=== PATIENT | female | born 1950 | race Caucasian/White ===

== ENCOUNTER 2016-11-25 19:32 | Inpatient (IN) | payer MEDICARE, OTHER ==
[~2016-11-25] VITALS: Ht 152.4 cm; Wt 137.0 kg
[2016-11-25] MEDS ORDERED: DUONEB INH ONE ×2 (21:50)
[2016-11-25] MEDS ORDERED: METHYLPRED SOD SUCC 125 MG/2 ML VIAL ONE (22:02)
[2016-11-26] VITALS (8 sets, daily range): BP systolic 90–122; RESP 18–20; TEMP 98–98.4; BMI 59.1
[2016-11-26] MEDS ORDERED: NEB-ATROVENT INH PRN (04:10)
[2016-11-26] MEDS ORDERED: SALINE FLUSH 10 ML FLUSH PRN (04:10)
[2016-11-26] MEDS ORDERED: AZITHROMYCIN 250 MG TAB PO ONE (04:10)
[2016-11-26] MEDS ORDERED: ONDANSETRON 4 MG VIAL IV PRN (04:10)
[2016-11-26] MEDS ORDERED: NEB-ALBUTEROL 2.5 MG/3 ML INH PRN (04:10)
[2016-11-26] MEDS: SODIUM CHLORIDE 0.9% FLUSH BAG 500 ML IV SCH (06:00)
[2016-11-26] MEDS ORDERED: METHYLPRED SOD SUCC 125 MG/2 ML VIAL IV SCH (08:00)
[2016-11-26] MEDS: SALINE FLUSH 10 ML FLUSH SCH ×2 (09:19→21:03)
[2016-11-26] MEDS ORDERED: DEXTROSE 50% SYRINGE 50 ML IV PRN (09:30)
[2016-11-26] MEDS ORDERED: GLUCAGON 1 MG VIAL IM PRN (09:30)
[2016-11-26] MEDS: MONTELUKAST 10 MG TAB PO SCH (11:13)
[2016-11-26] MEDS: DUONEB INH SCH ×4 (11:47→22:00)
[2016-11-26] MEDS ORDERED: CEFTRIAXONE 1 GM in SODIUM CHLORIDE 0.9% 50 ML IV ONE (12:15)
[2016-11-26] MEDS: METHYLPRED SOD SUCC 125 MG/2 ML VIAL IV SCH ×2 (15:36→23:42)
[2016-11-26] MEDS: WARFARIN 4 MG TAB PO SCH (15:37)
[2016-11-26] MEDS ORDERED: SODIUM CHLORIDE 0.9% 500 ML IV ONE (15:50)
[2016-11-26] MEDS ORDERED: METHYLPRED SOD SUCC 40 MG VIAL IV SCH (16:00)
[2016-11-26] MEDS: NEB-BUDESONIDE 0.5 MG INH SCH (19:10)
[2016-11-26] MEDS: NEB-BROVANA 15 MCG/2 ML INH SCH (19:10)
[2016-11-26] MEDS: Atorvastatin 20 MG TAB PO SCH (20:56)
[2016-11-26] MEDS: LEVEMIR INSULIN SUBQ SCH (20:57)
[2016-11-26] MEDS: METOPROLOL TART 25 MG TAB PO SCH (21:00)
[2016-11-27] VITALS (7 sets, daily range): BP systolic 92–142; RESP 16–20; TEMP 97.7–98.9
[2016-11-27] MEDS: SODIUM CHLORIDE 0.9% FLUSH BAG 500 ML IV SCH (04:35)
[2016-11-27] MEDS: LEVOTHYROXINE 0.15 MG TAB PO SCH (06:40)
[2016-11-27] MEDS: NEB-BUDESONIDE 0.5 MG INH SCH ×2 (06:56→18:37)
[2016-11-27] MEDS: DUONEB INH SCH ×5 (06:56→22:11)
[2016-11-27] MEDS: NEB-BROVANA 15 MCG/2 ML INH SCH ×2 (06:56→18:37)
[2016-11-27] MEDS: AZITHROMYCIN 250 MG TAB PO SCH (09:54)
[2016-11-27] MEDS: CETIRIZINE 10 MG TAB PO SCH (09:54)
[2016-11-27] MEDS: METOPROLOL TART 25 MG TAB PO SCH ×2 (09:54→20:44)
[2016-11-27] MEDS: SALINE FLUSH 10 ML FLUSH SCH ×2 (09:54→20:40)
[2016-11-27] MEDS ORDERED: SODIUM CHLORIDE 0.9% 500 ML IV ONE (09:55)
[2016-11-27] MEDS: MONTELUKAST 10 MG TAB PO SCH (09:55)
[2016-11-27] MEDS: METHYLPRED SOD SUCC 125 MG/2 ML VIAL IV SCH (09:55)
[2016-11-27] MEDS ORDERED: MISSING DOSE XX ONE (10:05)
[2016-11-27] MEDS: CEFTRIAXONE 1 GM in SODIUM CHLORIDE 0.9% 50 ML IV SCH (10:57)
[2016-11-27] MEDS: METHYLPRED SOD SUCC 40 MG VIAL IV SCH (17:52)
[2016-11-27] MEDS: WARFARIN 4 MG TAB PO SCH (17:52)
[2016-11-27] MEDS: Atorvastatin 20 MG TAB PO SCH (20:40)
[2016-11-27] MEDS: LEVEMIR INSULIN SUBQ SCH (20:41)
[2016-11-28] MEDS: METHYLPRED SOD SUCC 40 MG VIAL IV SCH ×3 (00:22→17:20)
[2016-11-28] MEDS: LEVOTHYROXINE 0.15 MG TAB PO SCH (06:39)
[2016-11-28] MEDS: SODIUM CHLORIDE 0.9% FLUSH BAG 500 ML IV SCH (06:40)
[2016-11-28] MEDS: NEB-BUDESONIDE 0.5 MG INH SCH ×2 (07:29→19:33)
[2016-11-28] MEDS: DUONEB INH SCH ×5 (07:29→22:19)
[2016-11-28] MEDS: NEB-BROVANA 15 MCG/2 ML INH SCH ×2 (07:29→19:33)
[2016-11-28 07:30] VITALS: BP_SYST 100; RESP 22; TEMP 97.8
[2016-11-28] MEDS: SALINE FLUSH 10 ML FLUSH SCH ×2 (08:22→20:25)
[2016-11-28] MEDS: CEFTRIAXONE 1 GM in SODIUM CHLORIDE 0.9% 50 ML IV SCH (08:51)
[2016-11-28] MEDS: CETIRIZINE 10 MG TAB PO SCH (08:51)
[2016-11-28] MEDS: AZITHROMYCIN 250 MG TAB PO SCH (08:51)
[2016-11-28] MEDS: MONTELUKAST 10 MG TAB PO SCH (08:51)
[2016-11-28] MEDS: CYANOCOBALAMIN 1000 MCG/ML VIAL IM SCH (08:55)
[2016-11-28] MEDS: METOPROLOL TART 25 MG TAB PO SCH ×2 (09:00→20:24)
[2016-11-28] MEDS: SOD CHL NASAL SPR 45ML NARE EACH PRN (09:46)
[2016-11-28 11:20] VITALS: BP_SYST 102; RESP 20; TEMP 98
[2016-11-28] MEDS: NEB-NACL 3% 4 ML NEBU INH SCH ×3 (12:30→22:19)
[2016-11-28 15:18] VITALS: BP_SYST 114; RESP 28; TEMP 98.3
[2016-11-28] MEDS: SALINE NARE EACH SCH ×3 (17:36→21:00)
[2016-11-28 19:37] VITALS: BP_SYST 110; RESP 20; TEMP 97.5
[2016-11-28] MEDS: Atorvastatin 20 MG TAB PO SCH (20:23)
[2016-11-28] MEDS: LEVEMIR INSULIN SUBQ SCH (20:24)
[2016-11-28 23:35] VITALS: BP_SYST 84; BP_SYST 88; RESP 30; TEMP 98
[2016-11-29] VITALS (8 sets, daily range): BP systolic 97–126; RESP 20–30; TEMP 97.5–98.2; Ht 152.4 cm; Wt 137.0 kg
[2016-11-29] MEDS: METHYLPRED SOD SUCC 40 MG VIAL IV SCH ×2 (00:29→08:36)
[2016-11-29] MEDS: LEVOTHYROXINE 0.15 MG TAB PO SCH (06:18)
[2016-11-29] MEDS: SODIUM CHLORIDE 0.9% FLUSH BAG 500 ML IV SCH (06:18)
[2016-11-29] MEDS: NEB-BUDESONIDE 0.5 MG INH SCH ×2 (07:24→19:12)
[2016-11-29] MEDS: NEB-BROVANA 15 MCG/2 ML INH SCH ×2 (07:24→19:12)
[2016-11-29] MEDS: DUONEB INH SCH ×5 (07:24→22:57)
[2016-11-29] MEDS: NEB-NACL 3% 4 ML NEBU INH SCH ×5 (07:24→22:57)
[2016-11-29] MEDS: SALINE FLUSH 10 ML FLUSH SCH ×2 (08:36→20:18)
[2016-11-29] MEDS: CYANOCOBALAMIN 1000 MCG/ML VIAL IM SCH (08:38)
[2016-11-29] MEDS: CEFTRIAXONE 1 GM in SODIUM CHLORIDE 0.9% 50 ML IV SCH (08:38)
[2016-11-29] MEDS: SOD CHL NASAL SPR 45ML NARE EACH PRN ×2 (08:39→17:35)
[2016-11-29] MEDS: METOPROLOL TART 25 MG TAB PO SCH ×2 (08:39→20:18)
[2016-11-29] MEDS: AZITHROMYCIN 250 MG TAB PO SCH (08:39)
[2016-11-29] MEDS: CETIRIZINE 10 MG TAB PO SCH (08:39)
[2016-11-29] MEDS: MONTELUKAST 10 MG TAB PO SCH (08:39)
[2016-11-29] MEDS: SALINE NARE EACH SCH ×3 (08:41→20:18)
[2016-11-29] MEDS ORDERED: ONDANSETRON 4 MG TAB PO PRN (12:25)
[2016-11-29] MEDS ORDERED: ONDANSETRON 4 MG VIAL IV PUSH PRN (12:40)
[2016-11-29] MEDS: Atorvastatin 20 MG TAB PO SCH (20:18)
[2016-11-29] MEDS ORDERED: LEVEMIR INSULIN SUBQ SCH (21:00)
[2016-11-30] MEDS: SODIUM CHLORIDE 0.9% FLUSH BAG 500 ML IV SCH (02:41)
[2016-11-30 02:44] VITALS: BP_SYST 111; RESP 20; TEMP 98.3
[2016-11-30] MEDS: LEVOTHYROXINE 0.15 MG TAB PO SCH (05:06)
[2016-11-30] MEDS: NEB-BUDESONIDE 0.5 MG INH SCH (06:35)
[2016-11-30] MEDS: NEB-BROVANA 15 MCG/2 ML INH SCH (06:35)
[2016-11-30] MEDS: NEB-NACL 3% 4 ML NEBU INH SCH ×2 (06:35→10:20)
[2016-11-30] MEDS: DUONEB INH SCH ×2 (06:35→10:20)
[2016-11-30 07:53] VITALS: BP_SYST 127; RESP 20; TEMP 98.2
[2016-11-30] MEDS: CEFTRIAXONE 1 GM in SODIUM CHLORIDE 0.9% 50 ML IV SCH (08:57)
[2016-11-30] MEDS: SALINE FLUSH 10 ML FLUSH SCH (08:57)
[2016-11-30] MEDS: CYANOCOBALAMIN 1000 MCG/ML VIAL IM SCH (08:57)
[2016-11-30] MEDS: CETIRIZINE 10 MG TAB PO SCH (08:57)
[2016-11-30] MEDS: METOPROLOL TART 25 MG TAB PO SCH (08:58)
[2016-11-30] MEDS: SALINE NARE EACH SCH (08:58)
[2016-11-30] MEDS: MONTELUKAST 10 MG TAB PO SCH (08:58)
[2016-11-30] MEDS: AZITHROMYCIN 250 MG TAB PO SCH (08:58)
[2016-11-30] MEDS ORDERED: PREDNISONE 10 MG TAB PO SCH (09:00)
[2016-11-30 10:32] VITALS: BP_SYST 111; RESP 20; TEMP 98
[2016-11-30 12:20] VITALS: BP_SYST 111; RESP 20; TEMP 98
== END 2016-11-30 12:55 | DRG 189 ==
LOC: ENRESERVTM → ENRESERVDT → CANRESERV → ER 19:32 → EMR 11-26 00:50 → ENPENDDIS 11-26 00:50 → 4NT 11-26 03:07
PROVIDERS: ADMIT Family Medicine; ATTEND Family Medicine
DX: J96.01 Acute respiratory failure with hypoxia (principal); J18.9 Pneumonia, unspecified organism; J45.901 Unspecified asthma with (acute) exacerbation; Z68.43 Body mass index [BMI] 50.0-59.9, adult; E03.9 Hypothyroidism, unspecified; G47.33 Obstructive sleep apnea (adult) (pediatric); E66.01 Morbid (severe) obesity due to excess calories; J20.9 Acute bronchitis, unspecified; E11.22 Type 2 diabetes mellitus with diabetic chronic kidney disease; I12.9 Hypertensive chronic kidney disease with stage 1 through stage 4 chronic kidney disease, or unspecified chronic kidney disease; N18.3 Chronic kidney disease, stage 3 (moderate); Z79.84 Long term (current) use of oral hypoglycemic drugs; I48.91 Unspecified atrial fibrillation; Z79.01 Long term (current) use of anticoagulants; E53.8 Deficiency of other specified B group vitamins; M62.3 Immobility syndrome (paraplegic); M19.90 Unspecified osteoarthritis, unspecified site; E78.5 Hyperlipidemia, unspecified; Z86.711 Personal history of pulmonary embolism; R04.0 Epistaxis
CPT/HCPCS: 36415; 71010; 71020; 80048; 80053; 81001; 81003; 82553; 82570; 82607; 82746; 82947; 83036; 83880; 84156; 84484; 85025; 85610; 85730; 87804; 93005; 93306; 94640; 94799; 96374; 99222; 99233; 99239

== ENCOUNTER 2016-11-29 09:07 | Inpatient (IN) | payer MEDICARE, OTHER ==
[~2016-11-29] VITALS: Ht 152.4 cm; Wt 134.4 kg
[2016-11-30] MEDS ORDERED: GLUCAGON 1 MG VIAL IM PRN (07:40)
[2016-11-30] MEDS ORDERED: ONDANSETRON 4 MG TAB PO PRN (07:40)
[2016-11-30] MEDS ORDERED: PNEUMO VAC 25 MCG/0.5 ML VL IM.VACC ONE (07:40)
[2016-11-30] MEDS ORDERED: DUONEB INH PRN (07:40)
[2016-11-30] MEDS ORDERED: POLYETHYLENE GLYCOL 17 GM PACKET PO PRN (07:40)
[2016-11-30] MEDS ORDERED: DEXTROSE 50% SYRINGE 50 ML IV PRN (07:40)
[2016-11-30] MEDS ORDERED: SALINE NARE EACH PRN (07:40)
[2016-11-30] MEDS ORDERED: SOD CHL NASAL SPR 45ML NARE EACH PRN (07:40)
[2016-11-30] MEDS ORDERED: MAG HYDROX 30 ML UDC PO PRN (07:40)
[2016-11-30] MEDS: MONTELUKAST 10 MG TAB PO SCH (09:00)
[2016-11-30] MEDS ORDERED: AZITHROMYCIN 250 MG TAB PO SCH (09:00)
[2016-11-30] MEDS: METOPROLOL TART 25 MG TAB PO SCH ×2 (09:00→20:28)
[2016-11-30] MEDS: CYANOCOBALAMIN 1000 MCG/ML VIAL IM SCH (09:00)
[2016-11-30] MEDS: PRENATAL VITAMIN TAB PO SCH (09:00)
[2016-11-30] MEDS: PREDNISONE 10 MG TAB PO SCH (09:00)
[2016-11-30] MEDS: CEFDINIR 300 MG CAP PO SCH ×2 (09:00→20:28)
[2016-11-30] MEDS: CETIRIZINE 10 MG TAB PO SCH (09:00)
[2016-11-30 13:32] VITALS: BP_SYST 99; RESP 20; TEMP 97.6
[2016-11-30 13:33] VITALS: BP_SYST 100; RESP 20
[2016-11-30] MEDS: LEVOTHYROXINE 0.15 MG TAB PO SCH (13:35)
[2016-11-30] MEDS: DUONEB INH SCH ×2 (14:57→22:44)
[2016-11-30 14:59] VITALS: RESP 18
[2016-11-30 16:37] VITALS: BP_SYST 114; RESP 20; TEMP 98.1
[2016-11-30] MEDS: NEB-BROVANA 15 MCG/2 ML INH SCH (17:53)
[2016-11-30] MEDS: NEB-BUDESONIDE 0.5 MG INH SCH (17:54)
[2016-11-30] MEDS: Atorvastatin 20 MG TAB PO SCH (20:28)
[2016-11-30] MEDS ORDERED: LEVEMIR INSULIN SUBQ SCH (21:00)
[2016-11-30] MEDS ORDERED: TUBERCULIN PPD 5 UNIT SYR ID.VACC ONE (21:00)
[2016-12-01] MEDS: LEVOTHYROXINE 0.15 MG TAB PO SCH (06:07)
[2016-12-01] MEDS: DUONEB INH SCH ×3 (07:44→23:06)
[2016-12-01] MEDS: NEB-BROVANA 15 MCG/2 ML INH SCH ×2 (07:44→19:06)
[2016-12-01] MEDS: NEB-BUDESONIDE 0.5 MG INH SCH ×2 (07:44→19:06)
[2016-12-01] MEDS: ACETAMINOPHEN 325 MG TAB PO PRN (08:08)
[2016-12-01] MEDS: LEVEMIR INSULIN SUBQ SCH ×2 (08:08→20:44)
[2016-12-01] MEDS: CYANOCOBALAMIN 1000 MCG/ML VIAL IM SCH (08:27)
[2016-12-01] MEDS: METOPROLOL TART 25 MG TAB PO SCH ×2 (08:28→20:42)
[2016-12-01] MEDS: CEFDINIR 300 MG CAP PO SCH ×2 (08:28→20:42)
[2016-12-01] MEDS: PREDNISONE 10 MG TAB PO SCH (08:28)
[2016-12-01] MEDS: MONTELUKAST 10 MG TAB PO SCH (08:29)
[2016-12-01] MEDS: CETIRIZINE 10 MG TAB PO SCH (08:29)
[2016-12-01] MEDS: PRENATAL VITAMIN TAB PO SCH (09:00)
[2016-12-01 09:16] VITALS: Ht 152.4 cm; Wt 134.4 kg
[2016-12-01 10:59] VITALS: BP_SYST 91; RESP 18; TEMP 98.5
[2016-12-01 16:13] VITALS: BP_SYST 124; RESP 18; TEMP 98.4
[2016-12-01] MEDS: Atorvastatin 20 MG TAB PO SCH (20:42)
[2016-12-01] MEDS: MICONAZOLE 2% PWD TOPICAL SCH (20:44)
[2016-12-02 01:08] VITALS: BP_SYST 111; RESP 20; TEMP 97.6
[2016-12-02] MEDS: LEVOTHYROXINE 0.15 MG TAB PO SCH (06:14)
[2016-12-02] MEDS: NEB-BUDESONIDE 0.5 MG INH SCH ×2 (07:30→19:15)
[2016-12-02] MEDS: NEB-BROVANA 15 MCG/2 ML INH SCH ×2 (07:30→19:15)
[2016-12-02] MEDS: DUONEB INH SCH ×3 (07:30→22:42)
[2016-12-02] MEDS: PREDNISONE 10 MG TAB PO SCH (08:41)
[2016-12-02] MEDS: MONTELUKAST 10 MG TAB PO SCH (08:41)
[2016-12-02] MEDS: CETIRIZINE 10 MG TAB PO SCH (08:41)
[2016-12-02] MEDS: CEFDINIR 300 MG CAP PO SCH ×2 (08:41→20:46)
[2016-12-02] MEDS: METOPROLOL TART 25 MG TAB PO SCH ×2 (08:41→20:46)
[2016-12-02] MEDS: MICONAZOLE 2% PWD TOPICAL SCH ×2 (08:42→20:48)
[2016-12-02] MEDS: LEVEMIR INSULIN SUBQ SCH ×2 (08:44→20:47)
[2016-12-02] MEDS: CYANOCOBALAMIN 1000 MCG/ML VIAL IM SCH (08:44)
[2016-12-02] MEDS ORDERED: MISSING DOSE XX ONE (08:45)
[2016-12-02 10:17] VITALS: BP_SYST 106; TEMP 97.9
[2016-12-02] MEDS: PRENATAL VITAMIN TAB PO SCH (10:17)
[2016-12-02 10:18] VITALS: RESP 22
[2016-12-02 15:35] VITALS: BP_SYST 107; RESP 18; TEMP 98
[2016-12-02] MEDS: Atorvastatin 20 MG TAB PO SCH (20:46)
[2016-12-02] MEDS ORDERED: SKIN TEST: READ AND RECORD XX SCH (21:00)
[2016-12-03 04:02] VITALS: BP_SYST 103; RESP 18; TEMP 98.6
[2016-12-03] MEDS: LEVOTHYROXINE 0.15 MG TAB PO SCH (06:22)
[2016-12-03] MEDS: NEB-BROVANA 15 MCG/2 ML INH SCH ×2 (06:49→20:27)
[2016-12-03] MEDS: NEB-BUDESONIDE 0.5 MG INH SCH ×2 (06:50→20:27)
[2016-12-03] MEDS: DUONEB INH SCH ×3 (06:50→23:56)
[2016-12-03] MEDS: MONTELUKAST 10 MG TAB PO SCH (08:11)
[2016-12-03] MEDS: PRENATAL VITAMIN TAB PO SCH (08:11)
[2016-12-03] MEDS: CEFDINIR 300 MG CAP PO SCH ×2 (08:11→21:28)
[2016-12-03] MEDS: CETIRIZINE 10 MG TAB PO SCH (08:11)
[2016-12-03] MEDS: PREDNISONE 10 MG TAB PO SCH (08:11)
[2016-12-03] MEDS: METOPROLOL TART 25 MG TAB PO SCH ×2 (08:11→21:28)
[2016-12-03] MEDS: LEVEMIR INSULIN SUBQ SCH ×2 (08:12→21:30)
[2016-12-03] MEDS: MICONAZOLE 2% PWD TOPICAL SCH ×2 (08:12→21:29)
[2016-12-03] MEDS: CYANOCOBALAMIN 1000 MCG/ML VIAL IM SCH (08:12)
[2016-12-03 08:13] VITALS: TEMP 98.2
[2016-12-03 08:14] VITALS: BP_SYST 106
[2016-12-03 08:16] VITALS: RESP 20
[2016-12-03] MEDS: WARFARIN 4 MG TAB PO SCH (15:31)
[2016-12-03 15:41] VITALS: BP_SYST 109; RESP 20; TEMP 98.3
[2016-12-03] MEDS: Atorvastatin 20 MG TAB PO SCH (21:28)
[2016-12-04 00:59] VITALS: BP_SYST 89; RESP 20; TEMP 98.2
[2016-12-04] MEDS: LEVOTHYROXINE 0.15 MG TAB PO SCH (06:33)
[2016-12-04 06:42] VITALS: BP_SYST 124
[2016-12-04] MEDS: NEB-BROVANA 15 MCG/2 ML INH SCH ×2 (06:46→18:29)
[2016-12-04] MEDS: NEB-BUDESONIDE 0.5 MG INH SCH ×2 (06:46→18:29)
[2016-12-04] MEDS: DUONEB INH SCH ×3 (07:00→18:29)
[2016-12-04] MEDS: CYANOCOBALAMIN 1000 MCG/ML VIAL IM SCH (08:19)
[2016-12-04] MEDS: CETIRIZINE 10 MG TAB PO SCH (08:20)
[2016-12-04] MEDS: PREDNISONE 10 MG TAB PO SCH (08:20)
[2016-12-04] MEDS: PRENATAL VITAMIN TAB PO SCH (08:20)
[2016-12-04] MEDS: MONTELUKAST 10 MG TAB PO SCH (08:20)
[2016-12-04] MEDS: METOPROLOL TART 25 MG TAB PO SCH ×2 (08:20→21:17)
[2016-12-04] MEDS: MICONAZOLE 2% PWD TOPICAL SCH ×2 (08:21→21:18)
[2016-12-04] MEDS: LEVEMIR INSULIN SUBQ SCH ×2 (08:21→21:18)
[2016-12-04 10:09] VITALS: BP_SYST 103; RESP 16; TEMP 98.3
[2016-12-04] MEDS: ACETAMINOPHEN 325 MG TAB PO PRN ×2 (10:22→22:29)
[2016-12-04] MEDS: WARFARIN 4 MG TAB PO SCH (17:30)
[2016-12-04 18:58] VITALS: BP_SYST 119; RESP 18; TEMP 98
[2016-12-04] MEDS: Atorvastatin 20 MG TAB PO SCH (21:16)
[2016-12-04 23:33] VITALS: BP_SYST 96; TEMP 98.2
[2016-12-05] MEDS: LEVOTHYROXINE 0.15 MG TAB PO SCH (05:34)
[2016-12-05] MEDS: NEB-BROVANA 15 MCG/2 ML INH SCH ×2 (06:01→19:26)
[2016-12-05] MEDS: NEB-BUDESONIDE 0.5 MG INH SCH ×2 (06:01→19:27)
[2016-12-05] MEDS: DUONEB INH SCH ×3 (06:01→19:26)
[2016-12-05] MEDS: CETIRIZINE 10 MG TAB PO SCH (08:17)
[2016-12-05] MEDS: LEVEMIR INSULIN SUBQ SCH ×2 (08:17→21:23)
[2016-12-05] MEDS: PRENATAL VITAMIN TAB PO SCH (08:17)
[2016-12-05] MEDS: PREDNISONE 10 MG TAB PO SCH (08:17)
[2016-12-05] MEDS: MONTELUKAST 10 MG TAB PO SCH (08:17)
[2016-12-05] MEDS: METOPROLOL TART 25 MG TAB PO SCH ×2 (08:18→21:21)
[2016-12-05] MEDS: MICONAZOLE 2% PWD TOPICAL SCH ×2 (08:18→21:22)
[2016-12-05] MEDS: CYANOCOBALAMIN 1000 MCG/ML VIAL IM SCH (08:21)
[2016-12-05 09:50] VITALS: BP_SYST 98
[2016-12-05 09:51] VITALS: TEMP 98.3
[2016-12-05 09:52] VITALS: RESP 20
[2016-12-05] MEDS ORDERED: CYANOCOBA 500 MCG TAB PO SCH (12:55)
[2016-12-05 15:41] VITALS: BP_SYST 111; RESP 18; TEMP 98.5
[2016-12-05] MEDS: WARFARIN 4 MG TAB PO SCH (17:00)
[2016-12-05] MEDS: Atorvastatin 20 MG TAB PO SCH (21:21)
[2016-12-06 01:00] VITALS: BP_SYST 93; TEMP 97.4
[2016-12-06] MEDS: ACETAMINOPHEN 325 MG TAB PO PRN ×3 (04:05→12:54)
[2016-12-06] MEDS: DUONEB INH SCH ×3 (06:25→22:42)
[2016-12-06] MEDS: NEB-BUDESONIDE 0.5 MG INH SCH ×2 (06:25→18:57)
[2016-12-06] MEDS: NEB-BROVANA 15 MCG/2 ML INH SCH ×2 (06:25→18:57)
[2016-12-06] MEDS: LEVOTHYROXINE 0.15 MG TAB PO SCH (06:46)
[2016-12-06] MEDS: METOPROLOL TART 25 MG TAB PO SCH ×2 (08:31→20:54)
[2016-12-06] MEDS: PRENATAL VITAMIN TAB PO SCH (08:31)
[2016-12-06] MEDS: MONTELUKAST 10 MG TAB PO SCH (08:31)
[2016-12-06] MEDS: CETIRIZINE 10 MG TAB PO SCH (08:31)
[2016-12-06] MEDS: LEVEMIR INSULIN SUBQ SCH ×2 (08:32→20:55)
[2016-12-06] MEDS: MICONAZOLE 2% PWD TOPICAL SCH ×2 (08:38→20:55)
[2016-12-06 10:07] VITALS: BP_SYST 100; TEMP 98.2
[2016-12-06 10:08] VITALS: RESP 20
[2016-12-06 17:02] VITALS: BP_SYST 105; RESP 20; TEMP 98.3
[2016-12-06] MEDS: WARFARIN 4 MG TAB PO SCH (17:04)
[2016-12-06] MEDS: Atorvastatin 20 MG TAB PO SCH (20:54)
[2016-12-07 02:43] VITALS: BP_SYST 84; TEMP 97.7
[2016-12-07] MEDS: LEVOTHYROXINE 0.15 MG TAB PO SCH (06:06)
[2016-12-07] MEDS: DUONEB INH SCH ×3 (06:28→23:29)
[2016-12-07] MEDS: NEB-BROVANA 15 MCG/2 ML INH SCH ×2 (06:28→18:36)
[2016-12-07] MEDS: NEB-BUDESONIDE 0.5 MG INH SCH ×2 (06:28→18:36)
[2016-12-07] MEDS: ACETAMINOPHEN 325 MG TAB PO PRN ×2 (09:12→13:34)
[2016-12-07] MEDS: LEVEMIR INSULIN SUBQ SCH ×2 (09:13→22:39)
[2016-12-07] MEDS: MONTELUKAST 10 MG TAB PO SCH (09:38)
[2016-12-07] MEDS: METOPROLOL TART 25 MG TAB PO SCH ×2 (09:38→21:00)
[2016-12-07] MEDS: CETIRIZINE 10 MG TAB PO SCH (09:38)
[2016-12-07] MEDS: PRENATAL VITAMIN TAB PO SCH (09:38)
[2016-12-07] MEDS: MICONAZOLE 2% PWD TOPICAL SCH ×2 (09:39→21:00)
[2016-12-07 09:46] VITALS: BP_SYST 110; TEMP 97.7
[2016-12-07 09:47] VITALS: RESP 20
[2016-12-07 15:35] VITALS: BP_SYST 102; RESP 20; TEMP 97.6
[2016-12-07] MEDS: WARFARIN 4 MG TAB PO SCH (18:28)
[2016-12-07] MEDS: Atorvastatin 20 MG TAB PO SCH (20:55)
[2016-12-07] MEDS ORDERED: TUBERCULIN PPD 5 UNIT SYR ID.VACC ONE (21:00)
[2016-12-07 21:40] VITALS: BP_SYST 102
[2016-12-08 01:05] VITALS: BP_SYST 106; RESP 20; TEMP 97.9
[2016-12-08] MEDS: DUONEB INH SCH ×2 (06:10→14:37)
[2016-12-08] MEDS: NEB-BROVANA 15 MCG/2 ML INH SCH (06:10)
[2016-12-08] MEDS: NEB-BUDESONIDE 0.5 MG INH SCH (06:10)
[2016-12-08] MEDS: LEVOTHYROXINE 0.15 MG TAB PO SCH (06:16)
[2016-12-08 09:33] VITALS: BP_SYST 108; TEMP 98.5
[2016-12-08 09:35] VITALS: RESP 20
[2016-12-08] MEDS: LEVEMIR INSULIN SUBQ SCH (09:35)
[2016-12-08] MEDS: METOPROLOL TART 25 MG TAB PO SCH (09:36)
[2016-12-08] MEDS: MONTELUKAST 10 MG TAB PO SCH (09:36)
[2016-12-08] MEDS: CETIRIZINE 10 MG TAB PO SCH (09:36)
[2016-12-08] MEDS: MICONAZOLE 2% PWD TOPICAL SCH (09:37)
[2016-12-08] MEDS: PRENATAL VITAMIN TAB PO SCH (09:37)
[2016-12-08 09:44] VITALS: BP_SYST 110; RESP 20
[2016-12-08 13:16] VITALS: BP_SYST 110; RESP 20; TEMP 98.5
[2016-12-08 13:27] VITALS: BP_SYST 110; RESP 20; TEMP 98.5
[2016-12-12] MEDS ORDERED: CYANOCOBALAMIN 1000 MCG/ML VIAL IM SCH (09:00)
== END 2016-12-08 14:48 | disposition home or self-care (01) | DRG 91 ==
LOC: NF 11-30 13:19
PROVIDERS: ADMIT Internal Medicine; ATTEND Internal Medicine
DX: R26.9 Unspecified abnormalities of gait and mobility (principal); J18.9 Pneumonia, unspecified organism; J96.01 Acute respiratory failure with hypoxia; E11.22 Type 2 diabetes mellitus with diabetic chronic kidney disease; J45.901 Unspecified asthma with (acute) exacerbation; N18.3 Chronic kidney disease, stage 3 (moderate); Z68.43 Body mass index [BMI] 50.0-59.9, adult; E66.01 Morbid (severe) obesity due to excess calories; Z71.3 Dietary counseling and surveillance
CPT/HCPCS: 36415; 80048; 82947; 85025; 85610; 86580; 94640; 94664; 94668; 94799; 99308; 99309